=== PATIENT | female | born 1975 | race African-American/Black ===

== ENCOUNTER 2017-05-17 03:14 | Observation (INO) | payer MEDICARE, OTHER ==
--- NOTE | ~2017-05-17 | HP ---
History And Physical [place] [id number] [facility] [place]. [address] NAME: MARY ANN KIM : 77 STATUS : ADM Anum PAT#: [id number] AGE: 41 ADM/REG DATE : 05/17/17 MR#: [id number] REPORT SERV DATE: 05/17/17 DICTATED BY: LASHON CARDONA DATE: 05/17/17 REPORT STATUS : Draft TRANSCRIBED BY: MODL DATE: 05/17/17 DATE OF ADMISSION: 05/17/2017 LEAF FAT SCRAPER: Gilmar Eubanks M.D. CHIEF COMPLAINT: Atypical pain. HISTORY OF PRESENT ILLNESS: This is a very pleasant 41-year-old black female with no known history of CAD, followed by Dr. Rogers for HIV positivity. States that on May 16 around 2300 hours, she felt her blood pressure was up, she had a headache, she describes some left neck discomfort that radiated into her left shoulder. She denies any chest pain, pressure, or tightness. She denies any exertional or stressful or argumentative or confrontational event. The left neck discomfort was rated a 10/10 at its most intense. At time of interview in the [facility], she is pain free. She reports associated nausea. Denies shortness of breath, diaphoresis, dizziness, or belching. Her symptoms of discomfort resolved with the application of Nitro paste by the emergency room. The patient denies any personal history of myocardial infarction, stroke, DVT, or pulmonary embolus. The patient denies any recent fever or chills, no palpitations, no syncopal episodes. Denies PND or orthopnea. PAST MEDICAL HISTORY: 1. HIV positivity. 2. Hypertension. 3. COPD. 4. Asthma. 5. Chronic bronchitis. 6. CKD stage II, followed by Raimundo every six months. 7. Sleep apnea, compliant with CPAP. 8. Ongoing tobacco abuse. SURGICAL HISTORY: 1. Tubal ligation. 2. Ectopic . 3. Arthroscopic repair of left knee twice. SOCIAL HISTORY: She is with a blended family of six, unemployed, does not have an exercise routine. Recent [employer] graduate. Smokes 1-1/2 packs of cigarettes per day for the past 13 years. Occasionally consumes alcohol. Denies illicits. FAMILY HISTORY: No embolic events reported in first-degree relatives. Mother with hypertension. REVIEW OF SYSTEMS: A 14-point review of systems performed, significant for HPI. No other contributory diagnoses identified. History And Physical [address] [place]. [address] NAME: MARY ANN KIM : [birth year] STATUS : ADM Anum PAT#: [id number] AGE: 41 ADM/REG DATE : 05/17/17 MR#: [id number] REPORT SERV DATE: 05/17/17 DICTATED BY: LASHON CARDONA DATE: 05/17/17 REPORT STATUS : Draft TRANSCRIBED BY: BEVERLEY DATE: 05/17/17 ALLERGIES: GATIFLOXACIN, SICK. HOME MEDICINES: Triumeq 600 mg daily, Ventolin inhaler p.r.n., Symbicort twice daily, Cartia 120 daily, Cozaar 100 mg daily, and Singulair 10 mg daily. PHYSICAL EXAMINATION: VITAL SIGNS: Bilateral blood pressures on arrival, right 125/81, left 125/73; pulse 71, respirations 20, temperature 98.7, O2 saturation 97% on room air. Height 5 feet 9 inches, weight 221 pounds, BMI of 32.7. GENERAL: Cooperative, in no apparent distress. HEENT: Pupils 2 mm, sclera nonicteric. Nares patent. Moist mucous membranes. No xanthelasma. NECK: Trachea midline, no thyromegaly. No JVD. No bruits. LYMPH: No cervical lymphadenopathy. No supraclavicular lymphadenopathy. RESPIRATORY: Unlabored respirations. Breath sounds clear bilaterally to posterior auscultation. No wheezes or rhonchi. CARDIOVASCULAR: Regular rate. No murmur, rub or gallop appreciated. Extremities without edema. Pulses 2+ bilaterally. ABDOMEN: Obese. Soft, nontender, nondistended, normal bowel sounds auscultated throughout. No organomegaly. SKIN: Warm, dry extremities. No pallor or cyanosis. PSYCHIATRIC: Appropriate affect. Alert, oriented x3. LABORATORY DATA: Troponin less than 0.02 x3. Potassium 3.8, BUN 15, creatinine 1.02, glucose 103, magnesium 2.0. WBC 7.2, hemoglobin 12.2, hematocrit 37.5, platelet count 196,000. EKG, sinus rhythm. MPI, 2011: Bryn stage 3, no ischemia. ASSESSMENT AND PLAN: 1. Atypical neck and shoulder discomfort in patient with risk factors of hypertension, tobacco use. The patient has been observed in the [facility]. Three sets of cardiac markers negative. EKG stable. The patient will be held n.p.o. for stress echo today. Home if negative study. To follow up with Dr. Rogers and Raimundo as scheduled. 2. Hypertension. Monitor blood pressure. Continue home medications. Hold CCB and resume after stress echo. 3. HIV positivity. Continue antivirals. 4. Ongoing tobacco abuse. Counseled regarding cessation. TELMA/BEVERLEY Lashon Cardona, MSN, [employer] History And Physical [address] [address] NAME: MARY ANN KIM : [birth year] STATUS : ADM Anum PAT#: [id number] AGE: 41 ADM/REG DATE : 05/17/17 MR#: [id number] REPORT SERV DATE: 05/17/17 DICTATED BY: LASHON CARDONA DATE: 05/17/17 REPORT STATUS : Draft TRANSCRIBED BY: BEVERLEY DATE: 05/17/17 / [id number] CC: Lashon Cardona, MSN, [employer] Ortiz Rogers M.D.
[~2017-05-17 03:14] MED LIST: ACCUNEB INH; ADVAIR250 INH; COZAAR100 MG PO; HCTZ25B PO; KLOR-CON M2020 MEQ PO; NORVIR100 PO; PEP20 PO; PREZISTA PO; SEPTRA DS1 TAB PO; SPIRIVA INH; STRIBILD PO; TRUVADA PO; VITAMIN D2 PO; Zithromax PO
[2017-05-17 03:19] LABS: BASOPHILS 0.6 %; BASOPHILS ABSOLUTE 0.04 10/3/uL (0.0-0.16); EOSINOPHILS ABSOLUTE 0.29 10/3/uL (0.0-0.53); IMMATURE GRANULOCYTES 0.1 %; IMMATURE GRANULOCYTES ABSOLUTE 0.01 10/3/uL (0.0-0.11); LYMPHOCYTES 45.1 %; LYMPHOCYTES ABSOLUTE 3.26 10/3/uL (0.67-4.30); MEAN PLATELET VOLUME 9.3 fL (9.2-13.0); MONOCYTES 7.1 %; MONOCYTES ABSOLUTE 0.51 10/3/uL (0.21-1.20); NEUTROPHILS 43.1 %; NEUTROPHILS ABSOLUTE 3.12 10/3/uL (2.02-8.40); PLATELET COUNT 196 10/3/uL (150-400); RED CELL COUNT 4.46 10/6/uL (4.0-5.6)
[2017-05-17 03:23] LABS: ER CBC TAT 0 Hrs 08 Mins; HEMATOCRIT 37.5 % (36.0-48.0); HEMOGLOBIN 12.2 g/dL (12.0-16.0); MANUAL DIFF NO %; MEAN CORPUS HGB CONC 32.5 g/dL (32.0-36.0); MEAN CORPUSCULAR HEMOGLOB 27.4 pg (26.0-34.0); MEAN CORPUSCULAR VOLUME 84.1 fL (80-100); WHITE BLOOD CELLS 7.2 10/3/uL (4.5-10.5)
[2017-05-17 03:26] LABS: INTERNATIONAL NORMAL RATI 0.9 UNITS (-); PARTIAL THROMBO TIME 30.7 SEC (22.5-37.2); PROTIME (NOT ORD) 12.3 SEC (12.0-14.5)
[2017-05-17 03:37] LABS: CALCIUM, SERUM 8.5 MG/DL (8.5-10.4); CHEST PAIN PROFILE TAT 0 Hrs 22 Mins; CHLORIDE, SERUM 109 MMOL/L (96-112); CO2 (CARBON DIOXIDE) 27 MMOL/L (24-34); CREATININE 1.02 MG/DL (0.55-1.02); GFR AFRICAN AMERICAN 80 ML/MIN (>=60); GFR NON AFRICAN AMERICAN 69 ML/MIN (>=60); GLUCOSE, SERUM 103 MG/DL (60-99); TROPONIN I <0.02 NG/ML (<0.05)
[2017-05-17 03:43] LABS: BUN (BLOOD UREA NITROGEN) 15 MG/DL (6-23); SODIUM, SERUM 141 MMOL/L (135-148)
[2017-05-17 03:44] LABS: POTASSIUM, SERUM 3.8 MMOL/L (3.5-5.3)
[2017-05-17] MEDS ORDERED: CARTIA XT120 MG/24 PO (04:46)
[2017-05-17] MEDS ORDERED: TRIUMEQ TABLET1 EACH PO ×3 (04:46→05:08)
[2017-05-17] MEDS ORDERED: COZAAR100 MG PO (04:48)
[2017-05-17] MEDS ORDERED: VENTOLIN HFA INH (04:49)
[2017-05-17] MEDS ORDERED: SYMBICORT 80/4.1 INH INH (04:55)
[2017-05-17] MEDS ORDERED: SINGULAIR1 PO (05:03)
== END 2017-05-17 17:15 | disposition home or self-care (01) ==
LOC: ER 03:14 → CDU1 04:08
PROVIDERS: Specialist
DX: R07.89 Other chest pain (principal); I12.9 Hypertensive chronic kidney disease with stage 1 through stage 4 chronic kidney disease, or unspecified chronic kidney disease; N18.2 Chronic kidney disease, stage 2 (mild); J44.9 Chronic obstructive pulmonary disease, unspecified; B20 Human immunodeficiency virus [HIV] disease; F17.210 Nicotine dependence, cigarettes, uncomplicated; G47.30 Sleep apnea, unspecified; Z98.51 Tubal ligation status; Z98.890 Other specified postprocedural states; Z88.1 Allergy status to other antibiotic agents; Z88.8 Allergy status to other drugs, medicaments and biological substances; Z79.899 Other long term (current) drug therapy
CPT/HCPCS: 71010; 80048; 83735; 84484; 85025; 85610; 85730; 93005; 99285; A9270-GY; C8928; G0378